=== PATIENT | male | born 1965 | race Caucasian/White ===

== ENCOUNTER 2019-07-31 12:07 | Emergency (ER) | payer OTHER ==
[2019-07-31 12:34] VITALS: BP 117/74
--- NOTE | 2019-07-31 13:30 | UC ---
Knee Pain HPI - HPI Summary HPI Summary: He was playing basketball just prior to coming in here. He's not sure of the mechanism but he hurt his left knee. He points to the medial aspect of his knee and moves the knee about relatively easily. - History of Current Complaint Chief Complaint: UCLowerExtremity Stated Complaint: KNEE INJURY Time Seen by Provider: 07/31/19 12:45 Hx Obtained From: Patient Onset/Duration: Sudden Onset Severity Initially: Moderate Severity Currently: Mild Pain Intensity: 2 Character: Aching Aggravating Factor(s): Movement, Weight Bearing Alleviating Factor(s): Rest Associated Signs And Symptoms: Positive: Negative Able to Bear Weight: Yes - Allergies/Home Medications Allergies/Adverse Reactions: Allergies Allergy/AdvReac Type Severity Reaction Status Date / Time No Known Allergies Allergy Verified 07/31/19 12:29 Home Medications: Home Medications Multivitamin [Multivitamins] 1 cap PO DAILY 07/31/19 [History Confirmed 07/31/19 ] PMH/Surg Hx/FS Hx/Imm Hx Previously Healthy: Yes - Surgical History Surgical History: Yes Surgery Procedure, Year, and Place: Gallbladder. umbilical hernia repair 2019 - Family History Known Family History: Positive: None - Social History Alcohol Use: Rare Substance Use Type: None Smoking Status (MU): Never Smoked Tobacco - Immunization History Vaccination Up to Date: Yes Review of Systems All Other Systems Reviewed And Are Negative: Yes Constitutional: Positive: Negative Motor: Positive: Other - Pain with range of motion Neurovascular: Positive: Negative Musculoskeletal: Positive: Negative Neurological/Mental Status: Positive: Negative Physical Exam - Summary Physical Exam Summary: Is nontoxic in appearance with stable vital signs and in no apparent distress. Appearance: Well-Appearing, No Pain Distress Vital Signs: Initial Vital Signs Temp 99.1 F 07/31/19 12:30 Pulse 84 07/31/19 12:30 Resp 16 07/31/19 12:30 BP 117/74 07/31/19 12:30 Pulse Ox 99 07/31/19 12:30 Vital Signs Reviewed: Yes Musculoskeletal Exam: Other - Is tender somewhat to valgus stress his knee. He is somewhat tender to a MacMurray's sign Neurological Exam: Normal Skin Exam: Normal Diagnostics - Radiology left knee Radiology Interpretation Completed By: Radiologist Summary of Radiographic Findings: No acute process Knee Pain Course/Dx - Course Course Of Treatment: He may have a medial meniscus injury alternatively this may be his medial collateral ligaments. I recommended immobilization and [place]. Follow-up with orthopedics if not improved quickly - Differential Dx/Diagnosis Provider Diagnosis: Knee injury Discharge ED - Sign-Out/Discharge Documenting (check all that apply): Patient Departure All imaging exams completed and their final reports reviewed: Yes - Discharge Plan Condition: Stable Disposition: HOME Patient Education Materials: Knee Pain (ED) Referrals: No Primary Care Phys,NOPCP [Primary Care Provider] - Mary Beth Helms MD [Medical Doctor] - - Billing Disposition and Condition Condition: STABLE Disposition: Home
== END 2019-07-31 13:45 | disposition home or self-care (01) ==
LOC: UCEAST 12:07
DX: S89.92XA Unspecified injury of left lower leg, initial encounter (principal); X58.XXXA Exposure to other specified factors, initial encounter; Y93.67 Activity, basketball; Y92.9 Unspecified place or not applicable
CPT/HCPCS: 99201; G0463